=== PATIENT | female | born 1990 ===

== ENCOUNTER 2016-12-31 00:25 | Emergency (ER) | payer OTHER ==
[2016-12-31 00:45] VITALS: PULSE 94; O2SAT 100
[2016-12-31 00:58] LABS: RBC URINE 3 /hpf (0-3); URINE BILIRUBIN NEGATIVE (NEGATIVE); URINE BLOOD NEGATIVE (NEGATIVE); URINE GLUCOSE (UA) NORMAL (Normal); URINE KETONE NEGATIVE (NEGATIVE); URINE LEUKOCYTE ESTERASE NEG Leu/uL (Negative); URINE PROTEIN NEGATIVE (NEGATIVE); URINE UROBILINOGEN NORMAL mg/dL (0.2-1.0); WBC URINE 1 /hpf (0-5)
[2016-12-31] MEDS ORDERED: Lidocaine 2% Inj (20ml) INFIL ONE (01:33)
[2016-12-31] MEDS ORDERED: Tmp-Smz 800 mg-160 mg DS Tab PO STA (01:37)
--- NOTE | 2016-12-31 01:41 | C.PDOC ---
History Of Present Illness Patient is a 26 year old female who presents to the ER with a complaint of a painful area to the vaginal region for the past 2 days that has worsened today. Denies fever or trauma. Time Seen by Provider: 12/31/16 00:52 Chief Complaint (Nursing): Female Genitourinary History Per: Patient History/Exam Limitations: no limitations Onset/Duration Of Symptoms: Days (2) Current Symptoms Are (Timing): Still Present Quality Of Discomfort: Unable To Describe Associated Symptoms: denies: Fever Alleviating Factors: None Recent travel outside of the [place]: No Abnormal Vaginal Bleeding: No Past Medical History Reviewed: Historical Data, Nursing Documentation, Vital Signs Vital Signs: Last Vital Signs Temp 98.4 F 12/31/16 02:27 Pulse 94 H 12/31/16 00:40 Resp 89 H 12/31/16 02:27 BP 110/78 12/31/16 02:27 Pulse Ox 100 12/31/16 03:21 - Medical History PMH: No Chronic Diseases Surgical History: No Surg Hx Family History: States: Unknown Family Hx - Social History Hx Alcohol Use: No Hx Substance Use: No - Immunization History Hx Tetanus Toxoid Vaccination: No Hx Influenza Vaccination: No Hx Pneumococcal Vaccination: No Review Of Systems Constitutional: Negative for: Fever Genitourinary: Positive for: Other (Painful area to vaginal region) Physical Exam - Physical Exam Appears: Non-toxic, No Acute Distress Skin: Normal Color, Warm, Dry Head: Atraumatic, Normacephalic Eye(s): bilateral: Normal Inspection Oral Mucosa: Moist Chest: Symmetrical, No Tenderness Cardiovascular: Rhythm Regular, No Murmur Respiratory: Normal Breath Sounds, No Rales, No Rhonchi, No Wheezing Gastrointestinal/Abdominal: Soft, No Tenderness Pelvic: Other (Swelling and tenderness to the right inner labia region with positive fluctuance. No drainage or induration. Oil Process Stillman: Sarthak WEINBERG) Neurological/Psych: Oriented x3, Normal Speech, Normal Cognition, Normal Motor Gait: Steady ED Course And Treatment O2 Sat by Pulse Oximetry: 100 (Room air) Pulse Ox Interpretation: Normal Progress Note: Bactrim and keflex administered. Immediately prior to procedure a "time out" was called to verify the correct patient, procedure and site. Procedure: With appropriate anesthesia, the abscess was incised and drained of purulent material under aseptic conditions by me. Word catheter attempted, however, patient could not tolerate secondary to pain. Disposition - Disposition Referrals: [facility] [Outside] [facility] [Outside] Disposition: HOME/ ROUTINE Disposition Time: 02:00 Condition: GOOD Additional Instructions: Follow up with the OBGYN within 1-2 days for wound check. Return if worsened. Prescriptions: Cephalexin [cephalexin] 500 mg PO BID #14 cap Ibuprofen [Motrin] 600 mg PO TID #21 tab Sulfamethoxazole/Trimethoprim [Bactrim DS 800 mg-160 mg] 1 tab PO BID #14 tab Instructions: Bartholin Cyst (GEN) - Clinical Impression Clinical Impression: Bartholin cyst - Scribe Statement The provider has reviewed the documentation as recorded by the Scribmariama Johnston All medical record entries made by the Scribe were at my direction and personally dictated by me. I have reviewed the chart and agree that the record accurately reflects my personal performance of the history, physical exam, medical decision making, and the department course for this patient. I have also personally directed, reviewed, and agree with the discharge instructions and disposition.
[2016-12-31] MEDS ORDERED: Lidocaine 2% Inj (20ml) ONE (01:49)
[2016-12-31] MEDS ORDERED: Tmp-Smz 800 mg-160 mg DS Tab ONE (01:54)
[2016-12-31 02:27] VITALS: BP 110/78; RESP 89; TEMP 98.4
== END 2016-12-31 02:28 | disposition home or self-care (01) ==
LOC: C.ER 00:25
DX: N75.0 Cyst of Bartholin's gland (principal)